=== PATIENT | female | born 1980 | race Caucasian/White ===

== ENCOUNTER 2020-01-05 17:45 | Emergency (ER) | payer MEDICAID ==
[~2020-01-05] VITALS: Ht 162.6 cm; Wt 60.0 kg
[~2020-01-05 17:45] MED LIST: AZIT250T PO; BUPR300T53 PO; DESV50TA PO; DIAZ5TAB PO; DROS1TAB3 PO; GABA800T11 PO; SUBOXONE PO
[2020-01-05] MEDS ORDERED: HYDROcodone/acetaminophen 5mg/325mg tablet PO ONE (17:55)
[2020-01-05] MEDS ORDERED: ketorolac trometh inj. 60 MG/2 ML VIAL IM ONE (17:55)
[2020-01-05 18:56] LABS: CLARITY,URINE SLIGHTLY CLOUDY (Clear); COLOR,URINE YELLOW (Yellow); GLUCOSE, URINE NEGATIVE (Neg); KETONES,URINE NEGATIVE (Neg); LEUKOCYTE ESTERASE ,URINE NEGATIVE (Neg); NITRITES, URINE NEGATIVE (Neg); OCCULT BLOOD,URINE NEGATIVE (Neg); PROTEIN,URINE NEGATIVE (Neg); UROBILINOGEN,URINE 0.2 E.U/dL (0.2-1.0)
[2020-01-05 19:01] LABS: URINE HCG NEGATIVE (NEG)
[2020-01-05 19:12] LABS: UA COLLECTION TYPE CLN CATCH MIDSTREAM
[2020-01-05 19:52] VITALS: BP 132/82
[2020-01-05 20:07] LABS: BACTERIA,URINE 1+ /HPF (Neg); MUCUS STRANDS FEW /LPF (Neg); RBC,URINE NONE SEEN /HPF (0-2); SQUAMOUS EPITHELIAL CELL,UR MANY /LPF (FEW); WBC,URINE 0-4 /HPF (0-4)
== END 2020-01-05 19:53 | disposition home or self-care (01) ==
LOC: ER 17:45
DX: G89.29 Other chronic pain (principal); R10.2 Pelvic and perineal pain; N84.0 Polyp of corpus uteri; M54.2 Cervicalgia; J45.909 Unspecified asthma, uncomplicated; F12.90 Cannabis use, unspecified, uncomplicated; Z79.2 Long term (current) use of antibiotics; Z79.899 Other long term (current) drug therapy
CPT/HCPCS: 81001; 81025; 96372; 99283; J1885